=== PATIENT | male | born 1970 | race Caucasian/White ===

== ENCOUNTER 2016-06-04 05:18 | Inpatient (IN) | payer OTHER, BC ==
[2016-06-01 10:18] VITALS: BMI 31.0
--- NOTE | 2016-06-01 10:47 | PAT Medication Instructions ---
Service Date Jun 01, 2016. Current Home Medication List Atenolol (Tenormin), 50 MG PO QAM Celecoxib (CeleBREX), 200 MG PO QAM Cyclobenzaprine HCl (Cyclobenzaprine HCl), 10 MG PO TID PRN for RN Omeprazole (Prilosec), 40 MG PO QAM Tramadol (Ultram), 50 MG PO Q6H PRN for meal packer Instructions For Your Scheduled Surgery - Hold the following medications the morning of surgery: Celecoxib (CeleBREX), 200 MG PO QAM (otherwise okay to continue per surgeon) Cyclobenzaprine HCl (Cyclobenzaprine HCl), 10 MG PO TID PRN - Take the following medications the morning of surgery with a sip of water OTHERWISE NOTHING TO EAT OR DRINK AFTER MIDNIGHT : Omeprazole (Prilosec), 40 MG PO QAM Atenolol (Tenormin), 50 MG PO QAM Tramadol (Ultram), 50 MG PO Q6H PRN (may take up to 4 hours prior to surgery if needed) If you have any questions please call us at [phone] or [phone] or [phone]
[2016-06-01 11:19] LABS: BASO % 0.5 %; BASO ABS # 0.03 K/uL (0-0.2); COMPLETE YES; EOS % 4.4 %; HEMATOCRIT 43.3 % (42-52); IG% 0.3 %; LYMPH % 26.3 %; LYMPH ABS # 1.67 K/uL (1.2-3.4); MEAN CELL VOLUME 85.7 fL (80-100); MEAN CORPUSCULAR HEMOGLOBIN 31.1 pg (25-34); MEAN CORPUSCULAR HGB CONC 36.3 g/dl (32-36); MEAN PLATELET VOLUME 9.1 fL (7.4-10.4); MONO % 7.7 %; NEUT % 60.8 %; PLATELET COUNT 242 K/uL (130-400); RED BLOOD COUNT 5.05 M/uL (4.7-6.1); WHITE BLOOD COUNT 6.36 K/uL (4.8-10.8)
[2016-06-01 11:26] LABS: URINE APPEARANCE CLEAR (CLEAR); URINE BILIRUBIN NEG (NEG); URINE COLOR YELLOW; URINE NITRITE NEG (NEG); URINE SPECIFIC GRAVITY 1.004 (1.000-1.030); UROBILINOGEN NEG (NEG)
[2016-06-01 11:31] LABS: MANUAL MICROSCOPIC REQUIRED? NO; REVIEW REQ? NO
[2016-06-01 11:37] LABS: BUN/CREATININE RATIO 12.1 (10-20); CALCIUM 9.3 mg/dl (8.5-10.1); CREATININE 1.1 mg/dl (0.60-1.40); POTASSIUM 4.9 mmol/L (3.5-5.1)
--- NOTE | 2016-06-01 11:57 | DIAGNOSTIC IMAGING REPORT ---
CHEST PREADMISSION(PA/LAT) CLINICAL HISTORY: PAT preoperative evaluation COMPARISON STUDY: No previous studies for comparison. FINDINGS: The bones soft tissues and hemidiaphragms are normal. The cardiomediastinal silhouette is normal. The lungs are clear. The pulmonary vasculature is normal. IMPRESSION: Negative chest. Electronically signed by: Paolo Lemons M.D. 06/01/2016 11:55 AM Dictated Date/Time: 06/01/2016 11:55 AM
[2016-06-04] VITALS (16 sets, daily range): BP systolic 106–137; BP diastolic 68–98; PULSE 82–98; TEMP 36.4–36.8; O2SAT 92–100; Ht 177.8 cm; Wt 98.6 kg
[~2016-06-04] VITALS: Ht 177.8 cm; Wt 98.6 kg
[~2016-06-04 05:18] MED LIST: ATEN50TA8 PO; CLB/200 PO; CYCL10TA7 PO; PRLSR20 PO; TRAM-10 PO
[2016-06-04] MEDS ORDERED: CEFAZOLIN 2000 MG/60 ML D5W IV SCH (06:00)
[2016-06-04] MEDS ORDERED: LACTATED RINGER'S 1000ML 1,000 ML IV SCH (06:00)
[2016-06-04] MEDS ORDERED: BACITRACIN 50000 UNIT VIAL ONE ×2 (06:52→08:29)
[2016-06-04] MEDS ORDERED: THROMBIN FOR SOLN 20000 UNIT KIT ONE (06:52)
[2016-06-04] MEDS ORDERED: THROMBIN 5000 UNITS KIT ONE (06:52)
[2016-06-04] MEDS ORDERED: MIDAZOLAM HCL 1 MG/ML 2ML VIAL ONE (07:02)
[2016-06-04] MEDS ORDERED: ROCURONIUM BROMIDE 10 MG/ML 5 ML VIAL ONE (07:02)
[2016-06-04] MEDS ORDERED: FENTANYL CITRATE INJ 50 MCG/1 ML 2 ML VIAL ONE ×3 (07:02→10:51)
[2016-06-04] MEDS ORDERED: LIDOCAINE HCL 2% 2 ML VIAL (20MG/ML) ONE (07:02)
[2016-06-04] MEDS ORDERED: NEOSTIGMINE METHYLSULFATE 5 MG/5 ML SYR ONE (07:02)
[2016-06-04] MEDS ORDERED: DEXAMETHASONE SOD INJ 4 MG/ML VIAL ONE (07:02)
[2016-06-04] MEDS ORDERED: PROPOFOL IV EMULSION 10 MG/ML 20 ML VIAL IV ONE (07:02)
[2016-06-04] MEDS ORDERED: GLYCOPYRROLATE INJ 0.2 MG/ML VIAL ONE (07:02)
[2016-06-04] MEDS ORDERED: ONDANSETRON INJ 2 MG/ML 2 ML VIAL ONE (07:02)
--- NOTE | 2016-06-04 07:27 | History & Physical Bridge Note ---
H&P Re-Evaluation Bridge Note: I have examined the patient, reviewed the History & Physical and in the interval since the performance of the History & Physical I have noted the following changes of clinical significance: No changes noted
--- NOTE | 2016-06-04 07:29 | History and Physical ---
History & Physical Date Jun 04, 2016. History of Present Illness The patient is a 46 year old male with complaints of Past Medical/Surgical History neck and arm pain Additional History Hepatic Disease: No Endocrine Disorder: No Kidney Disease: No Hypertension: No Heart Disease: No Bleeding Tendencies: No Infectious Diseases: No Allergies Coded Allergies: Petroleum Distillate (Verified Allergy, Intermediate, PETROLEUM BASED LOTIONS TOPICALLY-BLISTERS, ITCHY, 06/04/16) Home Medications Scheduled Atenolol (Tenormin), 50 MG PO QAM Celecoxib (CeleBREX), 200 MG PO QAM Omeprazole (Prilosec), 40 MG PO QAM Scheduled PRN Cyclobenzaprine HCl (Cyclobenzaprine HCl), 10 MG PO TID PRN for RN Tramadol (Ultram), 50 MG PO Q6H PRN for RN Physical Examination Skin: warm/dry, no rash Eyes: normal inspection, EOMI, sclerae normal ENT: normal ENT inspection, pharynx normal Head: normocephalic, atraumatic Neck: supple, no adenopathy, trachea midline Respiratory/Chest: lungs clear, normal breath sounds, no respiratory distress Cardiovascular: regular rate, rhythm, no edema, no murmur Abdomen / GI: normal bowel sounds, non tender Back: normal inspection Extremities: normal inspection, normal range of motion Neurologic/Psych: no motor/sensory deficits, alert, normal reflexes, oriented x 3 Diagnosis cervical stenosis with myeloradiculopathy Plan of Treatment acdf c5-6 corpectomy c7
[2016-06-04] MEDS ORDERED: LARYING-O-JET KIT (LTA) EXT ONE ×2 (07:41)
[2016-06-04] MEDS ORDERED: PHENYLEPHRINE HCL INJ 10 MG/ML VIAL ONE (08:02)
[2016-06-04] MEDS ORDERED: HYDROmorphone INJ 2 MG/ML SYR/VIAL ONE (08:02)
[2016-06-04] MEDS ORDERED: BUPIVACAINE/EPINEPHRINE 0.5% MPF 1:200,000 30 ML VIAL ONE (08:29)
[2016-06-04] MEDS ORDERED: SODIUM CHLORIDE 0.9% PF 50 ML VIAL ONE (08:29)
[2016-06-04] MEDS ORDERED: ONDANSETRON INJ 2 MG/ML 2 ML VIAL IV PRN ×2 (09:45→10:15)
[2016-06-04] MEDS ORDERED: ATROPINE SULFATE 0.1 MG/ML 5ML SYR IV PRN (09:45)
[2016-06-04] MEDS ORDERED: HYDROmorphone INJ 1 MG/ML SYR IV PRN (09:45)
[2016-06-04] MEDS ORDERED: MEPERIDINE HCL 25 MG/ML CARP IV PRN (09:45)
[2016-06-04] MEDS ORDERED: LABETALOL HCL IV 5 MG/ML 20ML IV PRN (09:45)
[2016-06-04] MEDS ORDERED: EpHEDrine SULFATE INJ 50 MG/ML AMP IV PRN (09:45)
[2016-06-04] MEDS ORDERED: FENTANYL CITRATE INJ 50 MCG/1 ML 2 ML VIAL IV PRN (09:45)
[2016-06-04] MEDS ORDERED: FLOSEAL HEMOSTATIC MATRIX 5ML TOP ONE (09:59)
--- NOTE | 2016-06-04 10:10 | [facility] Operative Report ---
Operative Report Operative Date Jun 04, 2016. Pre-Operative Diagnosis Cervical Spinal Stenosis Post-Operative Diagnosis same Procedure(s) Performed decompression Surgeon Dr. Alex Hunting Sales Associate Surgeon(s) None Estimated Blood Loss 25ML Findings stenosis Specimens None per surgeon. I attest to the content of the Intraoperative Record and any orders documented therein. Any exceptions are noted below.
[2016-06-04] MEDS ORDERED: LORAZEPAM INJ 0.5 MG in SYRINGE 0.75 ML IV PRN (10:15)
[2016-06-04] MEDS ORDERED: HYDROmorphone INJ 0.5 MG/0.5 ML SYR IV PRN (10:15)
[2016-06-04] MEDS ORDERED: NALOXONE HCL 0.4 MG/1 ML VIAL/CARP IV PRN (10:15)
[2016-06-04] MEDS ORDERED: MAGNESIUM HYDROXIDE SUSP 30 ML UDC PO PRN (10:15)
[2016-06-04] MEDS ORDERED: DO NOT ADMINISTER PNEUMOCOCCAL VACCINE PRN ×2 (10:15)
[2016-06-04] MEDS ORDERED: ACETAMINOPHEN IV 1,000 MG in EMPTY BAG 0 ML IV PRN (10:15)
[2016-06-04] MEDS ORDERED: LORAZEPAM 0.5 MG TAB PO PRN (10:15)
[2016-06-04] MEDS ORDERED: DO NOT ADMINISTER FLU VACCINE PRN ×3 (10:15)
[2016-06-04] MEDS ORDERED: DiphenhydrAMINE HCL 50 MG/ML VIAL IV PRN (10:15)
[2016-06-04] MEDS ORDERED: CYCLOBENZAPRINE HCL 10 MG TAB PO PRN (10:15)
[2016-06-04] MEDS ORDERED: RACEPINEPHRINE 2.25% NEBU SOLN 0.5 ML VIAL INH PRN (10:15)
[2016-06-04] MEDS ORDERED: DEXAMETHASONE INJ 8 MG in SYRINGE 0 ML IV PRN (10:15)
[2016-06-04] MEDS ORDERED: TRAMADOL HCL 50 MG TAB PO PRN (10:15)
--- NOTE | 2016-06-04 10:23 | DIAGNOSTIC IMAGING REPORT ---
INTRAOPERATIVE RADIOGRAPHS CLINICAL HISTORY: Spinal fusion. Fluoroscopy time: 15 seconds. FINDINGS: 3 spot fluoroscopic views of the cervical spine are presented. An endotracheal tube is in place. Findings suggest discectomy at C5-C6 and corpectomy of C7. Anterior fusion is noted, likely extend from C5 to T1. A surgical drain is present on the final image. IMPRESSION: Intraoperative images from cervical spine fusion, likely at the C5-T1 levels as above. See operative note for detailed findings. Electronically signed by: Aries Simental M.D. 06/04/2016 10:22 AM Dictated Date/Time: 06/04/2016 10:20 AM
--- NOTE | 2016-06-04 11:22 | OPERATIVE REPORT ---
DATE OF OPERATION: 06/04/2016 PREOPERATIVE DIAGNOSIS: Cervical spondylosis with myeloradiculopathy. POSTOPERATIVE DIAGNOSIS: Same. PROCEDURE PERFORMED: 1. Anterior cervical corpectomy C7 with bilateral foraminotomies. 2. Anterior cervical discectomy with bilateral foraminotomies C5-C6. 3. Anterior cervical arthrodesis, C5-C6, C6-T1. 4. Placement of PEEK cage 7 mm in height at C5-C6, 25 mm in height C6-T1. 5. Placement of locally harvested morcellized autograft combined with Rosalva bone grafting in interbody cages. 6. Application of Retana plate and screws from C5-T1. SURGEON: Dr. Hugo Alex. ANESTHESIA: General. DISPOSITION: The patient awakened and taken to PACU in stable condition. HISTORY OF PATIENT'S PROBLEMS: A 46-year-old male who presents with above-mentioned diagnosis. After failing an extensive course of nonoperative care, elected to undergo the above-mentioned procedure. Risks, benefits, pros, cons, and alternatives were outlined in detail preoperatively. PROCEDURE: The patient was met with preoperatively, case discussed and all questions were addressed. At that point the patient was taken back to the operative suite and after undergoing successful general intubation by the department of anesthesia was placed in supine position on [facility] table with head in Streeter teller head. All bony prominences were well padded and the eyes were inspected to ensure there was no external pressure placed upon them. At this point the anterior cervical spine was prepped and draped in a normal sterile fashion. With the assistance of fluoroscopy, we identified the C5 disc space and created a longitudinal incision on the right anterior aspect of the cervical spine beginning at this level. Sharp dissection with the assistance of bipolar cautery were performed down to and exposing the platysma musculature. This was also divided longitudinally and blunt dissection was carried out down to and exposing anterior cervical spine from C5-C7 verifying our position with fluoroscopy. A self-retaining retractor was placed. I then performed a complete discectomy of C6-C7 to the uncovertebral joints bilaterally followed by C7-T1. Gardiner distracting pins were then placed in C6 and T1 to distract across the C7 vertebral body. A complete corpectomy was then performed including removal of all posterior annular fibers, longitudinal ligament and bilateral foraminotomies to address significant stenosis and foraminal disease. Endplates were then burred to subcortical bleeding bone and a 25 mm PEEK cage filled with locally harvested morcellized autograft with Rosalva bone grafting tapped into position. Distracting apparatus was removed. I then proceeded to C5-C6. Again, a complete discectomy was performed out to the uncovertebral joints bilaterally. Gardiner distracting pins to assist in our visualization. I removed all posterior annular fibers, longitudinal ligament and bilateral foraminotomies performed. Endplates were burred to subcortical bleeding bone and a 7 mm PEEK cage filled with locally harvested morselized autograft and Rosalva bone grafting tapped in position. Distracting apparatus was removed. All anterior osteophytes burred to a smooth cortical surface and a Retana plate and screws applied with the assistance of fluoroscopy. Incision was then copiously irrigated, explored to ensure there was no damage to surrounding structures or remaining bleeding. A 10 round JUANA drain inserted. Incision was then closed with 1-0 Vicryl in the fascia, 2-0 Vicryl subcutaneously, 4-0 Monocryl for final skin closure. Steri-Strips and sterile dressing placed. The patient was awakened and taken to PACU in stable condition. I attest to the content of the Intraoperative Record and any orders documented therein. Any exceptio ns are noted below.
--- NOTE | 2016-06-04 12:21 | Anesthesiology Progress Note ---
Anesthesia Post Op Note Date & Time Jun 04, 2016 at 12:21 Vital Signs Pain Intensity: 2 Vital Signs Past 12 Hours Date Time Temp Pulse Resp B/P Pulse Ox O2 Delivery O2 Flow Rate FiO2 06/04/16 11:45 82 12 120/91 98 Nasal Cannula 2 06/04/16 11:30 95 12 120/77 97 Nasal Cannula 2 06/04/16 11:20 36.8 83 12 117/81 97 Nasal Cannula 2 06/04/16 11:10 83 12 121/84 97 Nasal Cannula 2 06/04/16 11:00 76 12 125/78 96 Nasal Cannula 2 06/04/16 10:50 82 12 124/79 95 Nasal Cannula 2 06/04/16 10:40 86 12 136/90 98 Mask 10 06/04/16 10:30 80 12 136/85 98 Mask 10 06/04/16 10:20 36.4 82 16 133/91 98 Mask 10 06/04/16 05:35 36.7 87 18 137/98 98 Room Air Notes Mental Status: alert / awake / arousable, participated in evaluation Pt Amnestic to Procedure: Yes Nausea / Vomiting: adequately controlled Pain: adequately controlled Airway Patency, RR, SpO2: stable & adequate BP & HR: stable & adequate Hydration State: stable & adequate Anesthetic Complications: no major complications apparent
[2016-06-04] MEDS: LACTATED RINGER'S 1000ML 1,000 ML IV SCH ×2 (12:38→21:51)
[2016-06-04] MEDS: HYDROmorphone INJ 1 MG/ML SYR IV PRN ×2 (12:40→20:31)
[2016-06-04] MEDS ORDERED: SCOPOLAMINE 1.5 MG TDSY TD SCH (13:00)
[2016-06-04] MEDS: CHECK SCOPOLAMINE PATCH PLACEMENT SCH ×2 (16:06→23:16)
[2016-06-04] MEDS: OXYCODONE/ACETAMINOPHEN 5-325 TAB PO PRN ×2 (17:03→17:53)
[2016-06-04] MEDS: DEXAMETHASONE INJ 6 MG in SYRINGE 0 ML IV SCH (17:30)
[2016-06-04] MEDS: CEFAZOLIN IV 2,000 MG in DEXTROSE 5% 50ML 50 ML IV SCH (17:30)
[2016-06-04] MEDS: DOCUSATE SODIUM 100 MG CAP PO SCH (20:31)
[2016-06-04] MEDS ORDERED: NURSING VERBAL MED ORDER ONE (20:45)
[2016-06-04] MEDS: NICOTINE 21 MG/24 HR TDSY TD SCH (21:16)
[2016-06-05] VITALS (11 sets, daily range): BP systolic 118–138; BP diastolic 72–89; PULSE 83–102; TEMP 36.7–36.9; O2SAT 94–97
[2016-06-05] MEDS: DEXAMETHASONE INJ 6 MG in SYRINGE 0 ML IV SCH ×2 (01:23→09:47)
[2016-06-05] MEDS: HYDROmorphone INJ 1 MG/ML SYR IV PRN (01:23)
[2016-06-05] MEDS: CEFAZOLIN IV 2,000 MG in DEXTROSE 5% 50ML 50 ML IV SCH ×2 (01:26→09:48)
[2016-06-05] MEDS: OXYCODONE/ACETAMINOPHEN 5-325 TAB PO PRN (07:59)
[2016-06-05] MEDS: CHECK SCOPOLAMINE PATCH PLACEMENT SCH (08:01)
--- NOTE | 2016-06-05 08:23 | Anesthesiology Progress Note ---
Anesthesia Post Op Note Date & Time Jun 05, 2016 at 08:23 Vital Signs Pain Intensity: 6.0 Vital Signs Past 12 Hours Date Time Temp Pulse Resp B/P Pulse Ox O2 Delivery O2 Flow Rate FiO2 06/05/16 08:00 95 14 95 Room Air 06/05/16 06:53 36.7 91 18 133/82 95 Room Air 06/05/16 05:05 36.8 94 16 127/83 94 Room Air 06/05/16 04:10 83 14 95 Room Air 06/05/16 03:25 36.8 90 16 120/72 94 Room Air 06/05/16 01:02 36.9 93 16 138/89 97 Room Air 06/04/16 23:15 88 14 94 Room Air 06/04/16 23:10 Room Air 2.0 Nasal Cannula Humidified Oxygen 06/04/16 23:10 36.8 88 18 131/88 95 Room Air 06/04/16 23:09 36.8 92 18 131/88 96 06/04/16 23:00 36.8 82 18 131/88 93 Room Air 06/04/16 21:00 36.6 93 17 131/84 96 Nasal Cannula 2.0 Humidified Oxygen Notes Mental Status: alert / awake / arousable, participated in evaluation Pt Amnestic to Procedure: Yes Nausea / Vomiting: adequately controlled Pain: adequately controlled Airway Patency, RR, SpO2: stable & adequate BP & HR: stable & adequate Hydration State: stable & adequate Anesthetic Complications: no major complications apparent
[2016-06-05] MEDS: DOCUSATE SODIUM 100 MG CAP PO SCH (08:31)
[2016-06-05] MEDS: NICOTINE 21 MG/24 HR TDSY TD SCH (08:37)
[2016-06-05] MEDS ORDERED: PANTOprazole SOD 40 MG TAB PO SCH (09:00)
[2016-06-05] MEDS ORDERED: OXYC-57 PO (10:11)
--- NOTE | 2016-06-05 10:12 | Discharge Instructions ---
Discharge Instructions Admission Reason for Admission: Cervical Spinal Stenosis Discharge Discharge Diagnosis / Problem: cervical stenosis Discharge Goals Goal(s): Improve function Activity Recommendations Activity Limitations: per Instructions/Follow-up section . Instructions / Follow-Up Instructions / Follow-Up ACTIVITY RECOMMENDATIONS: SELF CARE INSTRUCTIONS AFTER CERVICAL FUSIONS 1. No smoking. Smoking drastically decreases the chance of a solid fusion. 2. No bending, lifting more than 5 pounds, or twisting (roll like a log when turning in bed). 3. You may shower 3 days after surgery. Thoroughly dry wound. Do not soak in the tub. 4. Cervical collar: Must be worn at all times including sleeping. You may remove the brace only to bath, eat and if you are sitting in a recliner. 5. Please walk as much as you can for exercise. Gradually increase the distance that you walk as your endurance increases. SPECIAL CARE INSTRUCTIONS: VERY IMPORTANT TO READ AND REVIEW A. Do not take any anti-inflammatory medications (i.e. Indocin, Advil, Aspirin, Naprosyn, Aleve, Motrin, etc.) as these may inhibit the chance of a solid fusion. Tylenol is okay to take. B. Your surgical incision has been closed with a cosmetic suture under the skin that will dissolve in about 6 weeks. In 14 days, you can use a pair of clean scissors and cut the suture that is left outside of the skin at the ends of your incision. C. Complications are uncommon, but please contact us if you have any signs or symptoms of: 1. wound infection (fever higher than 102.5 degrees F, redness, separation of wound, drainage, or increasing pain from the incision) 2. blood clots in legs (pain, swelling, redness and warmth in legs) 3. urinary tract infection (fever higher than 102.5 degrees, burning upon urination or increased frequency of urination) 4. nerve problems (inability to walk on your toes or heels, numbness, loss of bowel or bladder control) 5. any other symptoms that concern you. D. Please call the office at if you have any concerns or questions about your operation or recovery. MANAGING PAIN AFTER SPINAL SURGERY 1. Narcotic medication is intended for short-term use and will be provided for surgical pain. Surgical pain usually lasts for a period of 4-6 weeks. Narcotic medication includes Percocet, Vicodin, Darvocet, Tylenol #3 or Lortab. 2. Longer-term pain is more appropriately treated with non-narcotic medication such as Tylenol ES. 3. Muscle spasm is not appropriately treated with narcotics. Muscle relaxers such as Soma, Flexeril or Skelaxin can be used along with Tylenol ES. 4. Remember that we all live with some "aches and pains". This is not unusual or uncommon after an injury or as we get older. 5. We will provide appropriate medication within the normal guidelines of their prescribed use. We will also be very cautious and aware of potential abuse and extended duration of patients' medication needs. 6. Please allow 2-3 days to process refills. Prescriptions will not be mailed but must be picked up at the office. FOLLOW UP VISIT: Keep your scheduled follow-up appointment. Any questions, please call the office at . Current Hospital Diet Patient's current hospital diet: Clear Liquid Diet Discharge Diet Recommended Diet: Regular Diet Procedures Procedures Performed: C5-C6 Anterior Cervical Decompression and Fusion, C7 Corpectomy, Interbody Fusion C5-C7, Rosalva Pending Studies Studies pending at discharge: no Medical Emergencies . Who to Call and When: Medical Emergencies: If at any time you feel your situation is an emergency, please call 911 immediately. . Non-Emergent Contact Non-Emergency issues call your: Primary Care Provider . "Provider Documentation" section prepared by Hugo Alex. VTE Core Measure Inpt VTE Proph given/why not?: Joel Vazquez, JENNA's
[2016-06-05] MEDS: LACTATED RINGER'S 1000ML 1,000 ML IV SCH (11:03)
--- NOTE | 2016-06-05 19:23 | DISCHARGE SUMMARY ---
PRINCIPAL DIAGNOSIS: Cervical spondylosis, mild radiculopathy. HOSPITAL COURSE FOLLOWS: On June 04 the patient underwent anterior cervical corpectomy and discectomy. He tolerated this well and taken to the orthopedic floor postoperatively. Postop day #1 arm symptoms were improved, swallowing well, no hoarseness. Subsequently discharged home. Discharge orders and instructions found on the chart for further review.
[2016-06-06] MEDS ORDERED: BISACODYL 10 MG SUPP PR PRN (06:00)
[2016-06-06] MEDS ORDERED: BISACODYL 5 MG TABEC PO PRN (06:00)
[2016-06-06] MEDS ORDERED: POLYETHYLENE (MIRALAX) 17 GM PACK PO SCH (09:00)
== END 2016-06-05 11:51 | disposition home or self-care (01) | DRG 473 ==
LOC: ENRESERVDT → ENRESERVTM → C.ACU 05:18 → C.3E 10:13
PROVIDERS: ADMIT Orthopaedic Surgery Orthopaedic Surgery of the Spine; ATTEND Orthopaedic Surgery Orthopaedic Surgery of the Spine
PROC: 0RG1070 Fusion of Cervical Vertebral Joint with Autologous Tissue Substitute, Anterior Approach, Anterior Column, Open Approach (ICD-10-PCS; principal; 2016-06-04 07:30)
PROC: 0RT30ZZ Resection of Cervical Vertebral Disc, Open Approach (ICD-10-PCS; principal; 2016-06-04 07:30)
PROC: 0RG40A0 Fusion of Cervicothoracic Vertebral Joint with Interbody Fusion Device, Anterior Approach, Anterior Column, Open Approach (ICD-10-PCS; principal; 2016-06-04 07:30)
PROC: 0RG10A0 Fusion of Cervical Vertebral Joint with Interbody Fusion Device, Anterior Approach, Anterior Column, Open Approach (ICD-10-PCS; principal; 2016-06-04 07:30)
PROC: 0RT50ZZ Resection of Cervicothoracic Vertebral Disc, Open Approach (ICD-10-PCS; principal; 2016-06-04 07:30)
PROC: 0RG4070 Fusion of Cervicothoracic Vertebral Joint with Autologous Tissue Substitute, Anterior Approach, Anterior Column, Open Approach (ICD-10-PCS; principal; 2016-06-04 07:30)
DX: M48.02 Spinal stenosis, cervical region (principal); M47.22 Other spondylosis with radiculopathy, cervical region; Z79.899 Other long term (current) drug therapy